=== PATIENT | male | born 1930 | race Caucasian/White ===

== ENCOUNTER 2020-04-17 16:54 | Emergency (ER) | payer MEDICARE, OTHER ==
[2020-04-17] MEDS ORDERED: Fentanyl 100 MCG/2 ML VIAL ONE ×2 (17:57→18:10)
--- NOTE | 2020-04-17 18:55 | RAD ---
XR Shoulder Lt 3 View STANDARD History: Injury Comparison: Radiograph same day Findings: Satisfactory alignment left glenohumeral joint. Mild calcific tendinosis rotator cuff. Ribs are intact. Impression: Satisfactory postreduction alignment.
--- NOTE | 2020-04-17 18:56 | RAD ---
LEFT SHOULDER ONE VIEW: 04/17/20 HISTORY: Shoulder injury. The bones are demineralized. There is a shoulder dislocation which appears to represent an anterior s houlder dislocation as seen on this single projection. 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 IMPRESSION: Anterior shoulder dislocation. POS: [facility]
== END 2020-04-17 19:21 | disposition home or self-care (01) ==
LOC: NAV ERS 16:54
DX: S43.005A Unspecified dislocation of left shoulder joint, initial encounter (principal); S41.111A Laceration without foreign body of right upper arm, initial encounter; E78.00 Pure hypercholesterolemia, unspecified; Z87.891 Personal history of nicotine dependence; Z79.82 Long term (current) use of aspirin; Z79.899 Other long term (current) drug therapy; W22.8XXA Striking against or struck by other objects, initial encounter
CPT/HCPCS: 23650; 96374; J3010

== ENCOUNTER 2020-04-20 08:14 | Emergency (ER) | payer MEDICARE ==
--- NOTE | 2020-04-20 10:23 | RAD ---
3 VIEWS LEFT SHOULDER: Date: 04/20/2020 COMPARISON: 04/17/2020. HISTORY: Left shoulder pain. Dislocation 2 days ago. FINDINGS: 3 views of the left shoulder show no evidence of acute fracture or dislocation. No soft tissue swelli ng is seen. The visualized left thorax is unremarkable. IMPRESSION: No evidence of acute osseous abnormality. POS: [facility]
== END 2020-04-20 09:30 | disposition home or self-care (01) ==
LOC: NAV ERS 08:14
DX: M25.512 Pain in left shoulder (principal); Z87.891 Personal history of nicotine dependence